=== PATIENT | female | born 1955 | race Caucasian/White ===

== ENCOUNTER 2021-11-24 17:27 | Observation (INO) ==
[2021-11-24] MEDS ORDERED: Naloxone 0.4 MG/ML INJ IVP PRN (20:29)
[2021-11-24] MEDS ORDERED: *HR* Metoprolol 5 MG/5 ML VIAL IVP PRN (20:32)
[2021-11-24] MEDS ORDERED: Perflutren Lipid Microsphere 1.3 ML in 0.9 % Sodium Chloride 8.7 ML IVP PRN (20:58)
[2021-11-24] MEDS ORDERED: D5% in Water 1,000 ML IVC PRN (21:57)
[2021-11-24] MEDS ORDERED: Dextrose Gel 15 GM/37.5 ML TUBE PO PRN ×2 (21:57)
[2021-11-24] MEDS ORDERED: *HR* Dextrose 50 % in Water (Syg) 50 ML SYRINGE IVP PRN (21:57)
[2021-11-24] MEDS: DilTIAZem 50 MG/50 ML IV.SOLN IVC SCH (22:04)
[2021-11-24] MEDS: Insulin LISPRO 300 UNITS/3 ML VIAL SUBQ SCH (23:13)
[2021-11-25] MEDS: DilTIAZem 50 MG/50 ML IV.SOLN IVC SCH ×4 (05:03→19:50)
[2021-11-25 06:12] LABS: Basophils # 0.1 K/mcL (0.0-0.2); Eosinophils # 0.2 K/mcL (0.0-0.6); Eosinophils % 2.9 %; Hematocrit 37.7 % (35.3-44.9); Hemoglobin 12.2 g/dL (11.5-15.4); Immature Granulocytes % 0.4 % (0-4); Lymphocytes # 1.9 K/mcL (0.6-4.6); Lymphocytes % 27.4 %; Mean Corpuscular HGB Conc 32.4 g/dL (31.6-35.5); Mean Corpuscular Hemoglobin 28.2 pg (28.0-33.3); Mean Corpuscular Volume 87.3 fL (83.0-100.0); Mean Platelet Volume 10.9 fL (9.4-12.4); Monocytes # 0.5 K/mcL (0.0-1.3); Monocytes % 7.9 %; Neutrophils # 4.1 K/mcL (1.6-8.9); Platelet Count 290 K/mcL (140-400); Red Blood Count 4.32 M/mcL (3.82-4.97); Red Cell Distribution Width 14.5 % (11.5-14.5); Segmented Neutrophils % 60.4 %; White Blood Count 6.8 K/mcL (4.3-11.1)
[2021-11-25 06:32] LABS: BUN/Creatinine Ratio 16 (6-26); Blood Urea Nitrogen 12 mg/dL (8-23); Calcium 9.4 mg/dL (8.6-10.3); Carbon Dioxide 24 mEq/L (23-29); Chloride 101 mEq/L (98-107); Glucose 263 mg/dL (70-105); Magnesium 1.7 mg/dL (1.6-2.6); Osmolality,Calculated 289 (280-300); Potassium 3.8 mEq/L (3.5-5.1); Sodium 135 mEq/L (136-145); eGFR For African Americans > 60 (> 60); eGFR For Non-African Americans > 60 (> 60)
[2021-11-25 06:41] LABS: Troponin I < 0.03 ng/mL (< 0.04)
[2021-11-25] MEDS: DilTIAZem CD (24hr) 240 MG CAP.ER.24H PO SCH (10:04)
[2021-11-25] MEDS: Insulin LISPRO 300 UNITS/3 ML VIAL SUBQ SCH ×4 (10:09→20:55)
[2021-11-25 10:44] LABS: Thyroid Stimulating Hormone 1.822 mcIU/mL (0.340-5.600)
[2021-11-25] MEDS ORDERED: *HR* Rivaroxaban 10 MG TABLET PO SCH (17:00)
[2021-11-25] MEDS ORDERED: Furosemide 40 MG/4 ML VIAL IVP ONE (20:29)
[2021-11-26 01:36] LABS: BUN/Creatinine Ratio 16 (6-26); Blood Urea Nitrogen 12 mg/dL (8-23); Calcium 9.5 mg/dL (8.6-10.3); Carbon Dioxide 25 mEq/L (23-29); Chloride 99 mEq/L (98-107); Glucose 277 mg/dL (70-105); Magnesium 1.7 mg/dL (1.6-2.6); Osmolality,Calculated 290 (280-300); Phosphorous 3.4 mg/dL (2.7-4.5); Sodium 135 mEq/L (136-145); eGFR For African Americans > 60 (> 60); eGFR For Non-African Americans > 60 (> 60)
[2021-11-26] MEDS: DilTIAZem CD (24hr) 240 MG CAP.ER.24H PO SCH (07:48)
[2021-11-26] MEDS: Insulin LISPRO 300 UNITS/3 ML VIAL SUBQ SCH ×2 (07:48→10:56)
[2021-11-26] MEDS ORDERED: Pregabalin 75 MG CAPSULE PO SCH (09:00)
[2021-11-26] MEDS ORDERED: lisinopriL 20 MG TABLET PO SCH (09:00)
[2021-11-26] MEDS ORDERED: 0.9 % Sodium Chloride 500 ML IVC ONE (12:42)
[2021-11-26] MEDS ORDERED: Lidocaine Viscous Oral Soln 15 ML SOLUTION MM PRN (12:42)
[2021-11-26 12:50] VITALS: BP 136/108; PULSE 111; TEMP 98.1; O2SAT 93
[2021-11-26] MEDS: *HR* FentaNYL (PF) 100 MCG/2 ML VIAL IVP PRN ×3 (13:00→13:12)
[2021-11-26] MEDS: *HR* Midazolam HCl 5 MG/5 ML VIAL IVP PRN ×3 (13:00→13:12)
[2021-11-26] MEDS: DilTIAZem 50 MG/50 ML IV.SOLN IVC SCH (14:54)
[2021-11-26] MEDS ORDERED: Insulin NPH/REG 70/30 100 UNIT/ML (x5UNIT) SUBQ SCH (21:00)
== END 2021-11-26 16:33 | disposition home or self-care (01) ==
LOC: 2ANU → SUATTDRO 19:06
PROVIDERS: ADMIT Internal Medicine; ATTEND Family Medicine